=== PATIENT | female | born 2000 | race African-American/Black ===

== ENCOUNTER 2024-10-08 20:04 | Emergency (ER) | payer OTHER, SELFPAY ==
[2024-10-08 20:09] VITALS: BP 110/68; PULSE 58; RESP 14; TEMP 36.9; O2SAT 100; BMI 19.1
--- NOTE | 2024-10-08 20:09 | ED_ITS ---
HPI - Nausea/Vomiting/Diarrhea General Chief complaint: Nausea/Vomiting/Diarrhea Stated complaint: vomiting body aches Time Seen by Provider: 10/08/24 23:25 Source: patient Mode of arrival: ambulatory Limitations: no limitations History of Present Illness ED Provider: KURT HPI Narrative: 24 yo female with no PMH has been fasting for and since 1 day has n/v some aches feels tired and weak. No abdominal pain diarrhea chest pain shortness of breath or urinary symptoms. Her mom and her are somewhat describing a different syndrome compared to triage note. Her mom notes she is weak and dehydrated and needs fluids as she is not tolerating the fasting. Patient also denies any heavy vaginal bleeding. MD elicited complaint: nausea and other (weakness) Onset (ago): day(s) (1) Description of vomiting: watery Associated nausea: Yes Associated abdominal pain: No Severity: moderate Exacerbating factors: movement and exertion Relieving factors: eating and rest Context: other (fasting for ) Associated symptoms: loss of appetite, malaise, nausea/vomiting and weakness Related Data Previous Rx's ?Medication ?Instructions ?Recorded ondansetron 4 mg disintegrating 4 mg PO Q8H PRN nausea and 10/09/24 tablet vomiting #20 tabs Allergies Allergy/AdvReac Type Severity Reaction Status Date / Time No Known Allergies Allergy Verified 10/08/24 20:14 Review of Systems 2 Review of Systems: Constitutional : No Weight loss, No Fever, No Chills, pos fatigue ENT/Mouth : No sore throat, No Rhinorrhea Eyes: No Swelling, No Redness Cardiovascular : No Chest Pain, No SOB, NoEdema Respiratory : No Cough, No Sputum, No Wheezing Gastrointestinal : Positive Nausea, Positive Vomiting, no Diarrhea, no abdominal Pain, No Hematochezia, No Melena Genitourinary : No Dysuria, No Urinary Frequency, No Hematuria, No Urgency Musculoskeletal : No joint pain, No Myalgias, No Joint Swelling Skin : No Skin Lesions, No rash Neuro : pos Weakness, No Numbness, No Dizziness, No Headache Psych : No Anxiety/Panic, No Depression All other systems reviewed and are negative. Gastrointestinal: Gastrointestinal: Reports nausea PMFSH Past Medical History Attestation statement: The following information was validated with the patient. Source: old records reviewed Medical History (Updated 10/09/24 @ 00:37 by Vanna Wahl DO) No pertinent past medical history Social History Social History (Updated 10/09/24 @ 00:31 by Vanna Wahl DO) Unable to assess alcohol history related to: Unknown Patient Tobacco Use Status: Never used Tobacco Smoked in Last 30 Days: No Use of substances other than those prescribed or required for medical reasons: Unknown Advance Directives: No Do you have a plan to hurt others: No Plan Physical Exam 2 Vital Signs: Vital Signs: Last Vital Signs Temp 98.0 F 10/08/24 23:45 Pulse 63 10/08/24 23:45 Resp 16 10/08/24 23:45 BP 111/74 10/08/24 23:45 Pulse Ox 99 10/08/24 23:45 O2 Del Method Room Air 10/08/24 23:45 BMI result Body Mass Index 19.1 Appearance: Alert. Oriented X3. No acute distress. Eyes: Pupils equal, round and reactive to light. ENT: Pharynx mildly dry MM Neck: Normal inspection. Neck supple. CVS: Normal heart rate and rhythm. Pulses normal. Respiratory: No respiratory distress. Breath sounds normal. Abdomen: Soft and nontender. Skin: Skin warm and dry. Normal skin color. Normal skin turgor. Extremities: No lower extremity edema. No calf ttp Neuro: Oriented X 3. No motor deficit. No sensory deficit. CN2-12 intact Course Course Course Narrative: This is an RME: Additional HPI, ROS, PE not included below will be deferred to primary provider. RME assessment and note performed by: Daiana Phelan PA-C This is a [id number]-female who presents to the ER with concerns for nausea, vomiting since today. Reporting low back pain. No urinary symptoms. Started her menses today. No diarrhea, fevers, or chills. Plan: Labs, UA, Viral swabs, further ER eval needed Medications Administered Discontinued Medications Generic Name Dose Route Start Last Admin Trade Name Freq PRN Reason Stop Dose Admin Lactated Ringer's 1,000 mls @ 999 mls/hr 10/08/24 23:25 10/08/24 23:50 Lr IV 10/09/24 00:25 999 mls/hr .Q1H1M ONE Administration Lactated Ringer's 1,000 mls @ 999 mls/hr 10/08/24 23:26 10/08/24 23:51 Lr IV 10/09/24 00:26 999 mls/hr .Q1H1M ONE Administration Ondansetron HCl 4 mg 10/08/24 23:25 10/08/24 23:41 Ondansetron Hcl 4 Mg/2 Ml Vial IVPUSH 10/08/24 23:26 4 mg ONCE ONE Administration Medical Decision Making Medical Decision Making MDM Narrative: 24 yo female with no sig PMH here with c/o n/v weakness fatigue and dehydration due to Ramadan fasting at this time will need labs, IVF x 2L, zofran and she has no abdominal pain or any other concerning features. Mild anemia likely related to intake. She is overall well appearing Differential Diagnosis Differential Diagnoses: The differential diagnosis associated with the presentation includes weakness, dehydration Admission/Observation Consideration of admission/observation: Escalation of care including admission/observation considered feels better after IVF at this time stable for DC Lab Data [facility] Lab Attestation statement: I reviewed the patient's lab results. 10/08/24 20:51 10/08/24 20:51 Labs: Lab Results 10/08/24 10/08/24 Range/Units 20:51 20:56 WBC 10.3 (4.8-10.8) X10*3/uL RBC 5.22 (4.20-5.50) X10*6/uL Hgb 11.6 L (12.0-16.0) g/dl Hct 38.0 (37.0-47.0) % MCV 72.8 L (80.0-98.0) fL MCH 22.2 L (27.0-33.0) pg MCHC 30.5 L (31.0-35.0) g/dl RDW 17.1 H (11.0-16.0) % Plt Count 287 (160-400) X10*3/uL MPV 10.1 (9.4-12.3) fL Immature Gran % (Auto) 1.3 H (0.0-0.4) % Neut % (Auto) 82.9 H (45-73) % Lymph % (Auto) 10.5 L (20-40) % [place] % (Auto) 4.7 (2-11) % Eos % (Auto) 0.1 (0-4) % Baso % (Auto) 0.5 (0-2) % Lymph # (Auto) 1.1 L (1.2-4.9) X10*3/uL [place] # (Auto) 0.5 (0.1-1.2) X10*3/uL Eos # (Auto) 0.0 (0.0-0.4) X10*3/uL Baso # (Auto) 0.1 (0.0-0.2) X10*3/uL Abs Immat Gran (auto) 0.13 H (0.00-0.03) X10*3/uL Absolute Neuts (auto) 8.6 H (2.0-8.3) x10*3/uL Absolute Nucleated RBC 0.000 (0.0-0.012) X10*3/uL Nucleated RBC % (auto) 0.0 (0.0-0.2) /100WBC Sodium 140 (135-145) mmol/L Potassium 4.1 (3.3-5.1) mmol/L Chloride 109 H (96-108) mmol/L Carbon Dioxide 22 (22-29) mmol/L Anion Gap 13 (12-20) BUN 6 L (9-16) mg/dL Creatinine 0.62 (0.5-1.4) mg/dL Estim Creat Clear Calc 115.2 Estimated GFR > 60 Random Glucose 84 (60-115) mg/dL Calcium 9.6 (8.4-10.2) mg/dL Magnesium 2.0 (1.6-2.6) mg/dL Total Bilirubin 0.3 (0.0-1.0) mg/dL Direct Bilirubin 0.1 (0.0-0.5) mg/dL AST 23 (5-31) U/L ALT 11 (0-31) U/L Alkaline Phosphatase 56 (39-117) U/L Total Protein 8.8 H (6.5-8.0) g/dL Albumin 4.5 (3.5-5.0) g/dL Lipase 24 (8-78) U/L Beta HCG, Quant < 2 mIU/mL Urine Color Yellow Urine Appearance Clear Urine pH 7.0 (5.0-9.0) Ur Specific [place] 1.020 (1.005-1.025) Urine Protein Trace (Neg-Trace) mg/dL Urine Glucose (UA) Negative (Negative) mg/dL Urine Ketones 40 (Negative) mg/dL Urine Blood Large (3+) H (Negative) Urine Nitrite Negative (Negative) Ur Leukocyte Esterase Trace H (Negative) Urine RBC 6-10 H (0-2) /HPF Urine WBC 0-5 (0-5) /HPF Ur Squamous Epith Cells 6-10 (0-2) /HPF Urine Bacteria Trace (None Seen) Hyaline Casts 0-2 (0-2) /LPF Influenza Type A (PCR) NEGATIVE (Negative) Influenza Type B (PCR) NEGATIVE (Negative) RSV RNA Qual (PCR) NEGATIVE (Negative) SARS-CoV-2 RNA (RT-PCR) NEGATIVE (Negative) Independent Historian Clinical information obtained from an independent historian. History obtained from or confirmed by: Parent External Record Review External record reviewed: Outpatient record Prescription Management I considered prescription management with: Other Discharge Plan Discharge Clinical Impression: Acute dehydration, Fatigue Patient Disposition: Home, Self-Care Instructions: Dehydration (ED), Fatigue (ED) Additional Instructions: labs reassuring very mild anemia please increase your iron intake through your diet rest and stay hydrated return for any worsening symptoms or concerns. Prescriptions: New ondansetron 4 mg tablet,disintegrating 4 mg PO Q8H PRN (Reason: nausea and vomiting) Qty: 20 0RF Stand Alone Forms: Work/School Release Print Language: Romanian
[2024-10-08 20:56] LABS: MANUAL DIFF FLAG NO
[2024-10-08 21:02] LABS: Appearance Urine Clear; Color Urine Yellow; Glucose Urine UA Negative (Negative); Leukocyte Esterase Urine Trace (Negative); Nitrite Urine Negative (Negative); UMIC TRIGGER UACC YES; Urine Blood Large (3+) (Negative); Urine Ketones 40 mg/dL (Negative); Urine Protein Trace mg/dL (Neg-Trace)
[2024-10-08 21:04] LABS: Bacteria Urine Trace (None Seen); Hyaline Casts Urine 0-2 /LPF (0-2); WBC Urine 0-5 /HPF (0-5)
[2024-10-08 21:18] LABS: Alanine Aminotransferase 11 U/L (0-31); Albumin Level 4.5 g/dL (3.5-5.0); Alkaline Phosphatase 56 U/L (39-117); Anion Gap 13 (12-20); Aspartate Amino Transferase 23 U/L (5-31); Bilirubin Direct 0.1 mg/dL (0.0-0.5); Bilirubin Total 0.3 mg/dL (0.0-1.0); Blood Urea Nitrogen 6 mg/dL (9-16); Calcium 9.6 mg/dL (8.4-10.2); Carbon Dioxide 22 mmol/L (22-29); Chloride 109 mmol/L (96-108); Creatinine Clr Calc Pharmacy 115.2; Estimated Glomerular Filt Rate > 60; Glucose Random 84 mg/dL (60-115); Lipase 24 U/L (8-78); Potassium 4.1 mmol/L (3.3-5.1); Sodium 140 mmol/L (135-145); Total Protein 8.8 g/dL (6.5-8.0)
[2024-10-08 21:19] LABS: HCG Quantitative < 2 mIU/mL
[2024-10-08 21:20] LABS: Basophils Absolute Auto 0.1 X10*3/uL (0.0-0.2); Basophils Percent Auto 0.5 % (0-2); Eosinophils Percent Auto 0.1 % (0-4); Hemoglobin 11.6 g/dl (12.0-16.0); Imm Gran Abs Auto 0.13 X10*3/uL (0.00-0.03); Imm Gran Pct Auto 1.3 % (0.0-0.4); Lymphocytes Absolute Auto 1.1 X10*3/uL (1.2-4.9); Lymphocytes Percent Auto 10.5 % (20-40); Mean Corpuscular HGB Conc 30.5 g/dl (31.0-35.0); Mean Corpuscular Hemoglobin 22.2 pg (27.0-33.0); Mean Corpuscular Volume 72.8 fL (80.0-98.0); Mean Platelet Volume 10.1 fL (9.4-12.3); Monocytes Absolute Auto 0.5 X10*3/uL (0.1-1.2); Monocytes Percent Auto 4.7 % (2-11); Neutrophils Absolute Auto 8.6 x10*3/uL (2.0-8.3); Neutrophils Percent Auto 82.9 % (45-73); Platelet Count 287 X10*3/uL (160-400); Red Blood Count 5.22 X10*6/uL (4.20-5.50); Red Cell Distribution Width 17.1 % (11.0-16.0); White Blood Count 10.3 X10*3/uL (4.8-10.8)
[2024-10-08 21:34] LABS: Influenza A PCR NEGATIVE (Negative); Influenza B PCR NEGATIVE (Negative); Resp Syncy Virus RNA Qual PCR NEGATIVE (Negative); SARS COV2 PCR INHOUSE NEGATIVE (Negative)
[2024-10-08] MEDS: ondansetron HCL 4 MG/2 ML VIAL IVPUSH (23:41)
[2024-10-08 23:45] VITALS: BP 111/74; PULSE 63; RESP 16; TEMP 36.7; O2SAT 99
[2024-10-08] MEDS: Lactated Ringers 1,000 ML 999 ML IV ×2 (23:50→23:51)
--- NOTE | 2024-10-08 23:51 | PC.NURSE ---
IV established, pt medicated per MAR. IVF infusing per MAR. Continue to monitor.
--- NOTE | 2024-10-09 01:17 | PC.NURSE ---
at bedside for reeval.
[2024-10-09 01:31] VITALS: BP 103/61; PULSE 61; RESP 20; TEMP 36.4; O2SAT 98
--- NOTE | 2024-10-09 01:34 | PC.NURSE ---
IVF still infusing however pt requesting discharge. VSS at this time, IV removed, pt provided with DC paperwork.
[2024-10-09 01:35] VITALS: BP 0/0; PULSE 0; RESP 0; TEMP -17.7; TEMP 0
== END 2024-10-09 01:37 | disposition home or self-care (01) ==
PROVIDERS: Physician Assistant Medical; Emergency Provider Emergency Medicine
DX: E86.0 Dehydration (principal); R53.83 Other fatigue; R11.2 Nausea with vomiting, unspecified; Z03.818 Encounter for observation for suspected exposure to other biological agents ruled out
CPT/HCPCS: 0241U; 36415; 80048; 80076; 81001; 81003; 83690; 83735; 84702; 85025; 96361; 96374; 99284; J2405; J7120